=== PATIENT | female | born 1960 | race Two or more races ===

== ENCOUNTER 2018-05-25 09:42 | Emergency (ER) | payer OTHER, MEDICAID ==
[~2018-05-25] VITALS: Ht 157.5 cm; Wt 59.0 kg
[~2018-05-25 09:42] MED LIST: CITA10TA59 PO; NOR10T PO
[2018-05-25 11:26] VITALS: BP 148/89
[2018-05-25] MEDS ORDERED: KETOROLAC TROMETH 60MG/2ML VIAL IM ONE (12:15)
== END 2018-05-25 12:58 | disposition home or self-care (01) ==
LOC: ER 09:43
DX: M54.2 Cervicalgia (principal); M79.671 Pain in right foot; M79.642 Pain in left hand; E78.5 Hyperlipidemia, unspecified; M19.90 Unspecified osteoarthritis, unspecified site; W01.0XXA Fall on same level from slipping, tripping and stumbling without subsequent striking against object, initial encounter; Y93.89 Activity, other specified; Y92.89 Other specified places as the place of occurrence of the external cause; Y99.8 Other external cause status
CPT/HCPCS: 72040; 73130; 73630; 96372; 99283; J1885

== ENCOUNTER 2018-10-14 12:33 | Emergency (ER) | payer OTHER, MEDICAID ==
[~2018-10-14] VITALS: Ht 157.5 cm; Wt 57.2 kg
[2018-10-14 15:55] VITALS: BP 124/79
== END 2018-10-14 16:33 | disposition home or self-care (01) ==
LOC: ER 12:33
DX: M54.6 Pain in thoracic spine (principal); R07.89 Other chest pain; M19.90 Unspecified osteoarthritis, unspecified site; E78.5 Hyperlipidemia, unspecified; F12.10 Cannabis abuse, uncomplicated; Z98.51 Tubal ligation status
CPT/HCPCS: 71046; 93005

== ENCOUNTER 2022-03-24 11:33 | Emergency (ER) | payer OTHER, MEDICAID ==
[~2022-03-24] VITALS: Ht 157.5 cm; Wt 58.2 kg
[~2022-03-24 11:33] MED LIST changes: -CITA10TA59 PO; +CITA10TA8 PO
[2022-03-24 12:06] VITALS: BP 118/78
[2022-03-24 12:42] LABS: Urine Bacteria NONE SEEN /hpf (None Seen); Urine Blood Negative /uL (Negative); Urine Specific Gravity 1.004 (1.001-1.035); Urine WBC 2 /hpf (0 - 5)
[2022-03-24 13:36] LABS: Basophils # (auto) 0 10 ^3/uL (0-0.2); Basophils % (auto) 0.4 % (0.0-2.0); Eosinophils # (auto) 0.2 10 ^3/uL (0-0.8); Eosinophils % (auto) 2.7 % (0.0-7.0); Hemoglobin 15.5 g/dL (12.2-16.2); Lymphocytes # (auto) 1.4 10 ^3/uL (0.4-5.4); Lymphocytes % (auto) 25.2 % (10.0-50.0); Mean Corpuscular Hemoglobin 30.9 pg (28.0-32.0); Mean Corpuscular Hgb Conc. 33.7 g/dL (32.0-36.0); Mean Corpuscular Volume 91.6 fL (80.0-100.0); Monocytes # (auto) 0.4 10 ^3/uL (0-1.3); Monocytes % (auto) 7.9 % (0.0-12.0); Neutrophils # (auto) 3.6 10 ^3/uL (1.6-8.6); Neutrophils % (auto) 63.8 % (37.0-80.0); Nucleated Red Blood Cells % 0.1 %; Red Blood Cells 5.02 10^6/uL (4.0-5.20); Red Cell Distribution Width 13.7 % (11.8-14.3); White Blood Cell 5.7 10^3/uL (4.4-10.8)
[2022-03-24 13:53] LABS: Albumin 4.4 g/dL (3.4-5.0); Calcium 9.5 mg/dL (8.5-10.1); Potassium 4.2 mmol/L (3.5-5.1)
[2022-03-24 13:56] LABS: BUN/Creatinine Ratio 11.1; Bilirubin, Total 0.4 mg/dL (0.2-1.0); Total Protein 7.6 g/dL (6.4-8.2)
[2022-03-24] MEDS ORDERED: IOHEXOL 300 MG/ML 100ML BOTTLE IJ ONE (16:59)
== END 2022-03-24 20:19 | disposition home or self-care (01) ==
LOC: ER 11:33
DX: R10.30 Lower abdominal pain, unspecified (principal); F12.90 Cannabis use, unspecified, uncomplicated; E78.5 Hyperlipidemia, unspecified; Z98.890 Other specified postprocedural states
CPT/HCPCS: 36415; 74177; 80053; 81001; 83605; 83690; 85025; 93005; 99285; Q9967

== ENCOUNTER 2023-12-26 12:19 | Emergency (ER) | payer OTHER, MEDICAID ==
[~2023-12-26] VITALS: Ht 157.5 cm; Wt 57.0 kg
[2023-12-26 14:33] VITALS: BP 116/68
[2023-12-26] MEDS ORDERED: NAP500T GT (15:06)
[2023-12-26 15:54] VITALS: PULSE 88; RESP 20; O2SAT 98
== END 2023-12-26 16:08 | disposition home or self-care (01) ==
LOC: ER 12:19
DX: S43.401A Unspecified sprain of right shoulder joint, initial encounter (principal); F12.10 Cannabis abuse, uncomplicated; Z79.899 Other long term (current) drug therapy; Z87.11 Personal history of peptic ulcer disease; Z98.51 Tubal ligation status; X50.0XXA Overexertion from strenuous movement or load, initial encounter; Y93.89 Activity, other specified; Y92.89 Other specified places as the place of occurrence of the external cause; Y99.8 Other external cause status
CPT/HCPCS: 73030